=== PATIENT | male | born 2000 ===

== ENCOUNTER 2022-04-19 19:21 | Emergency (ER) | payer SELFPAY ==
--- NOTE | 2022-04-19 22:45 | Emergency Department Report ---
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 No bleeding or discharge MD complaint: tooth pain -: Gradual, days(s) (3) 1 - Area of dental pain Severity: mild, moderate Quality: dull Consistency: constant - Related Data Previous Rx's Medication Instructions Recorded Last Taken Type Amoxicillin [Amoxicillin TAB] 875 mg PO BID #20 tablet 04/19/22 Unknown Rx Ketorolac [Toradol] 10 mg PO Q6H PRN #15 tablet 04/19/22 Unknown Rx Lidocaine Viscous 2% 5 ml MM Q3H PRN #120 udc 04/19/22 Unknown Rx Allergies Allergy/AdvReac Type Severity Reaction Status Date / Time No Known Allergies Allergy Verified 04/19/22 20:04 ED Dental HPI - General Chief complaint: Dental/Oral Stated complaint: TOOTH PAIN Time Seen by Provider: 04/19/22 21:54 Source: patient Mode of arrival: Ambulatory Limitations: No Limitations - Related Data Previous Rx's Medication Instructions Recorded Last Taken Type Amoxicillin [Amoxicillin TAB] 875 mg PO BID #20 tablet 04/19/22 Unknown Rx Ketorolac [Toradol] 10 mg PO Q6H PRN #15 tablet 04/19/22 Unknown Rx Lidocaine Viscous 2% 5 ml MM Q3H PRN #120 udc 04/19/22 Unknown Rx Allergies Allergy/AdvReac Type Severity Reaction Status Date / Time No Known Allergies Allergy Verified 04/19/22 20:04 ED Review of Systems ROS: Stated complaint: TOOTH PAIN Other details as noted in HPI Comment: All other systems reviewed and negative ED Past Medical Hx - Medications Home Medications: Home Medications Medication Instructions Recorded Confirmed Last Taken Type Amoxicillin [Amoxicillin TAB] 875 mg PO BID #20 tablet 04/19/22 Unknown Rx Ketorolac [Toradol] 10 mg PO Q6H PRN #15 tablet 04/19/22 Unknown Rx Lidocaine Viscous 2% 5 ml MM Q3H PRN #120 udc 04/19/22 Unknown Rx ED Physical Exam - General Limitations: No Limitations General appearance: alert, in no apparent distress - Head Head exam: Present: atraumatic, normocephalic - Eye Eye exam: Present: normal appearance, PERRL, EOMI - ENT ENT exam: Present: mucous membranes moist, other - Expanded ENT Exam Expanded Teeth exam: Present: dental caries, dental tenderness # 1 - Dental Tenderness, Other (Abscess to this region) - Neck Neck exam: Present: normal inspection - Respiratory Respiratory exam: Present: normal lung sounds bilaterally. Absent: respiratory distress - Cardiovascular Cardiovascular Exam: Present: regular rate, normal rhythm. Absent: systolic murmur, diastolic murmur, rubs, gallop - GI/Abdominal GI/Abdominal exam: Present: soft, normal bowel sounds. Absent: tenderness, guarding, rebound, organomegaly, mass - Rectal Rectal exam: Present: deferred - Extremities Exam Extremities exam: Present: normal inspection, normal capillary refill. Absent: tenderness - Back Exam Back exam: Present: normal inspection - Neurological Exam Neurological exam: Present: alert, oriented X3 - Psychiatric Psychiatric exam: Present: normal affect, normal mood - Skin Skin exam: Present: warm, dry, intact, normal color. Absent: rash ED Course Vital Signs 04/19/22 19:32 Temperature 98.7 F Pulse Rate 57 L Respiratory 18 Rate Blood Pressure 122/81 O2 Sat by Pulse 96 Oximetry Critical care attestation.: If time is entered above; I have spent that time in minutes in the direct care of this critically ill patient, excluding procedure time. ED Disposition Clinical Impression: Infected dental caries Disposition: HOME / SELF CARE / HOMELESS Is pt being admited?: No Does the pt Need Aspirin: No Condition: Stable Instructions: Dental Abscess, Dental Extraction, [id number] Referrals: [facility] [Outside] - 3-5 Days
[2022-04-20 00:51] VITALS: BP 117/74
== END 2022-04-20 00:52 | disposition home or self-care (01) ==
LOC: ED 19:21
DX: K02.9 Dental caries, unspecified (principal)
CPT/HCPCS: 99282